=== PATIENT | male | born 1960 | race African-American/Black ===

== ENCOUNTER 2019-03-24 20:56 | Emergency (ER) | payer MEDICAID ==
[~2019-03-24] VITALS: Ht 185.4 cm; Wt 105.0 kg
[2019-03-24 21:05] VITALS: BP 129/105
[2019-03-24] MEDS ORDERED: METF500T PO (21:57)
== END 2019-03-24 22:41 | disposition home or self-care (01) ==
LOC: ER 20:57
DX: E11.9 Type 2 diabetes mellitus without complications (principal); Z76.0 Encounter for issue of repeat prescription
CPT/HCPCS: 99283